=== PATIENT | male | born 1985 | race Caucasian/White ===

== ENCOUNTER 2017-10-07 09:19 | Emergency (ER) | payer OTHER ==
[~2017-10-07] VITALS: Ht 177.8 cm; Wt 74.3 kg
[2017-10-07 09:22] VITALS: TEMP 36.7; Ht 177.8 cm; Wt 74.3 kg
[2017-10-07] MEDS ORDERED: IBUPROFEN 600 MG TAB PO STA (09:52)
[2017-10-07] MEDS ORDERED: HYDROCODONE/ACETAMINOPHEN 7.5/325MG TAB PO STA (09:52)
--- NOTE | 2017-10-07 09:54 | EMERGENCY ROOM VISIT NOTE ---
History Report prepared by Victor Manuel: Valarie Arreola Under the Supervision of: Dr. Shelly Shukla M.D. First contact with patient: 09:39 Chief Complaint: DENTAL PAIN Stated Complaint: TOOTH PAIN Nursing Triage Summary: Left upper dental pain x4 days. "I need a root canal, but im on medical assistance so I am having trouble finding a dentist that can perform the surgery. The pain is severe, I was up all night." History of Present Illness The patient is a 32 year old male who presents to the Emergency Room with complaints of worsening left upper dental pain beginning 4 days ago. He rates his pain at a 7/10. The patient states that he needs a root canal and states that he believes that he has an infection. The patient also states that his tooth is loose. He reports that the pain has been keeping him up at night. The patient states that he has been trying to schedule an appointment for a root canal. He reports taking Ibuprofen for his pain but states that it has not alleviated the pain at all. Source of History: patient Onset: 4 days ago Position: teeth (left upper dental area) Symptom Intensity: rated at a 7/10 Quality: other (pain) Timing: worsening Review of Systems See HPI for pertinent positives & negatives. A total of 6 systems reviewed and were otherwise negative. Past Medical & Surgical Medical Problems: (1) Back strain Family History FH: HTN (hypertension) Social History Smoking Status: Current Every Day Smoker Alcohol Use: occasionally Drug Use: none Marital Status: Housing Status: lives with family Occupation Status: employed Current/Historical Medications Scheduled Penicillin V Potassium (Veetids), 500 MG PO QID Scheduled PRN Hydrocodone/Acetaminophen 5MG/325MG (Drake 5MG/325MG), 1 TABLET PO Q6 PRN for Pain Allergies Coded Allergies: Sulfamethoxazole w/Trimethoprim (Verified Allergy, Severe, rash, 10/07/17) Physical Exam Vital Signs Date Time Temp Pulse Resp B/P (MAP) Pulse Ox O2 Delivery O2 Flow Rate FiO2 10/07/17 10:22 80 18 122/59 99 10/07/17 09:22 36.7 88 18 126/81 100 Room Air Physical Exam Vital signs reviewed. General: Well-appearing male, in no significant distress. HEENT: No scleral icterus, PERRLA, neck supple. Atraumatic. Cavity to the #15 tooth. Some tenderness of the tooth without palpable abscess, no facial swelling. Musculoskeletal: Atraumatic, no peripheral edema. Neurologic: Patient awake alert and oriented x 3. Skin: Warm, dry, no rash Medical Decision & Procedures Medications Administered Medications (Trade) Dose Ordered Sig/Isauro Route Start Time Stop Time Status Last Admin Dose Admin Acetaminophen/ Hydrocodone Bitart (Drake 7.5/325 Tab) 1 tab NOW STAT PO 10/07/17 09:52 10/07/17 09:55 DC 10/07/17 09:59 1 TAB Penicillin V Potassium (Veetids Tab) 500 mg NOW ONCE PO 10/07/17 10:00 10/07/17 10:01 DC 10/07/17 09:58 500 MG Ibuprofen (Motrin Tab) 600 mg NOW STAT PO 10/07/17 09:52 10/07/17 09:55 DC 10/07/17 09:59 600 MG ED Course 0951: Past medical records reviewed. The patient was evaluated in room B3B. A complete history and physical examination was performed. 1000: The patient verbalized agreement of the treatment plan. He was discharged home. Medical Decision Differentials include: dental caries, dental abscess, and fractured tooth. This patient was evaluated and appeared to be in no significant distress. Patient appears to have some dental caries, there is no appreciable abscess. The tooth is not loose or draining. There is no apparent fracture. Patient was given a dose of Pen-VK, hydrocodone/APAP and ibuprofen. The patient will follow up with dentistry this week and return to the ED for worsening of symptoms or any medical concerns. Medication Reconcilliation Current Medication List: was personally reviewed by me Blood Pressure Screening Patient's blood pressure: Normal blood pressure Impression Primary Impression: Pain, dental Scribe Attestation The scribe's documentation has been prepared under my direction and personally reviewed by me in its entirety. I confirm that the note above accurately reflects all work, treatment, procedures, and medical decision making performed by me. Departure Information Dispostion Home / Self-Care Prescriptions Hydrocodone/Acetaminophen 5MG/325MG (Drake 5MG/325MG) Tab 1 TABLET PO Q6 Y for Pain, #14 TAB Prov: Shelly Shukla M.D. 10/07/17 Penicillin V Potassium (Veetids) 500 Mg Tab 500 MG PO QID, #28 TAB Prov: Shelly Shukla M.D. 10/07/17 Referrals No Doctor, Assigned (PCP) Forms HOME CARE DOCUMENTATION FORM, IMPORTANT VISIT INFORMATION Patient Instructions [facility] Additional Instructions Diagnosis: Dental pain Pen-VK 500 mg 4 times daily for 7 days. Ibuprofen 600 mg every 6 hours as needed for pain with food. Drake 1 tab every 6 hours as needed for more severe pain. Do not take Tylenol or drive with this medication. Follow through with dentistry this week for further management. Return to the ED for worsening of symptoms or any medical concerns.
[2017-10-07] MEDS ORDERED: PENICILLIN V POTASSIUM 250 MG TAB PO ONE (10:00)
[2017-10-07] MEDS ORDERED: HYDR-5688 PO (10:02)
[2017-10-07] MEDS ORDERED: PENI-82 PO (10:02)
[2017-10-07 10:22] VITALS: BP 122/59; PULSE 80; O2SAT 99
== END 2017-10-07 10:25 | disposition home or self-care (01) ==
LOC: C.EDB 09:22
DX: K08.89 Other specified disorders of teeth and supporting structures (principal); F17.200 Nicotine dependence, unspecified, uncomplicated; Z88.2 Allergy status to sulfonamides